=== PATIENT | female | born 1935 | race Caucasian/White ===

== ENCOUNTER 2017-01-30 09:18 | Emergency (ER) | payer MEDICARE, OTHER ==
[2017-01-30 09:29] VITALS: BP 119/78
--- NOTE | 2017-01-30 09:53 | EDM.PDOC ---
ED HPI GENERAL MEDICAL PROBLEM - General Chief Complaint: Respiratory Problem Stated Complaint: [id number] FLU OR BAD COLD Time Seen by Provider: 01/30/17 09:39 Source of Information: Reports: Patient, RN, RN Notes Reviewed History Limitations: Reports: No Limitations - History of Present Illness INITIAL COMMENTS - FREE TEXT/NARRATIVE: Pt presents to the ER with c/o a head cold and cough for 7+ days. She states her was sick for a week or longer before he was seen in the clinic and given abx. She states he is better. She states her symptoms have been going on about 7-8 days. Symptoms include non-productive cough, sore throat, chills, headache, muscle pain in the chest only with cough. She states she thought she had a fever this morning, but does not have a temperature right now. She denies N/V/D and SOB. She states she has been using Nyquil, Claritin, and trying to drink lots of water. Onset: Gradual Onset Date: 01/23/17 Location: Reports: Head, Face Quality: Reports: Ache, Dull, Throbbing Severity: Moderate Improves with: Reports: None Worsens with: Reports: None Associated Symptoms: Reports: Cough, Fever/Chills, Headaches. Denies: cough w sputum - Related Data Allergies Allergy/AdvReac Type Severity Reaction Status Date / Time oxytetracycline Allergy Unknown Rash Verified 01/30/17 09:29 [From Terramycin] oxytetracycline HCl Allergy Unknown Rash Verified 01/30/17 09:29 [From Terramycin] cefuroxime axetil AdvReac Unknown Diarrhea Verified 01/30/17 09:29 [From Ceftin] fish derived AdvReac Unknown Nausea and Verified 01/30/17 09:29 Vomiting wild rice Allergy Diarrhea Uncoded 01/30/17 09:29 Home Meds: Home Meds Acetaminophen [Acetaminophen Extra Strength] 500 mg PO Q4HR PRN 04/23/13 [ History] Levothyroxine [Synthroid] 50 mcg PO ACBRK 04/23/13 [History] Past Medical History HEENT History: Reports: Impaired Vision Other HEENT History: wers glasses Cardiovascular History: Reports: None Respiratory History: Reports: None Gastrointestinal History: Reports: None Genitourinary History: Reports: UTI, Recurrent 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 Musculoskeletal History: Reports: None Neurological History: Reports: None Psychiatric History: Reports: None Endocrine/Metabolic History: Reports: Hyperthyroidism Hematologic History: Reports: None Immunologic History: Reports: None Oncologic (Cancer) History: Reports: Leukemia Dermatologic History: Reports: None - Infectious Disease History Infectious Disease History: Reports: Chicken Pox, Measles, Mumps - Past Surgical History Head Surgeries/Procedures: Reports: None HEENT Surgical History: Reports: Tonsillectomy GI Surgical History: Reports: Appendectomy, Cholecystectomy Social & Family History - Tobacco Use Smoking Status *Q: Never Smoker Second Hand Smoke Exposure: No - Caffeine Use Caffeine Use: Reports: Coffee - Alcohol Use Days Per Week of Alcohol Use: 0 - Recreational Drug Use Recreational Drug Use: No ED ROS GENERAL - Review of Systems Review Of Systems: ROS reveals no pertinent complaints other than HPI. ED EXAM, GENERAL - Physical Exam Exam: See Below Exam Limited By: No Limitations General Appearance: Alert, WD/WN, No Apparent Distress Eye Exam: Bilateral Eye: EOMI, Normal Inspection Ears: Normal External Exam, Normal Canal, Hearing Grossly Normal, Normal TMs Nose: Normal Inspection Throat/Mouth: Normal Inspection, Normal Oropharynx, Normal Voice, No Airway Compromise Head: Atraumatic, Normocephalic Neck: Normal Inspection, Supple, Non-Tender, Full Range of Motion Respiratory/Chest: No Respiratory Distress, Lungs Clear, Normal Breath Sounds, No Accessory Muscle Use, Chest Non-Tender Cardiovascular: Normal Peripheral Pulses, Regular Rate, Rhythm, No Edema, No Gallop, No JVD, No Murmur, No Rub Peripheral Pulses: 2+: Radial (L), Radial (R) GI/Abdominal: Normal Bowel Sounds, Soft, Non-Tender, No Distention (Female) Exam: Deferred Rectal (Female) Exam: Deferred Back Exam: Normal Inspection, Full Range of Motion Extremities: Normal Inspection, Normal Range of Motion, Non-Tender, No Pedal Edema, Normal Capillary Refill Neurological: Alert, Oriented, CN II-XII Intact, Normal Cognition, Normal Gait, No Motor/Sensory Deficits Psychiatric: Normal Affect, Normal Mood Skin Exam: Warm, Dry, Intact, Normal Color, No Rash Lymphatic: No Adenopathy Course - Vital Signs Last Recorded V/S: Last Vital Signs Temp 98.2 F 01/30/17 09:23 Pulse 108 H 01/30/17 09:23 Resp 16 01/30/17 09:23 BP 119/78 01/30/17 09:23 Pulse Ox 95 01/30/17 09:23 Departure - Departure Time of Disposition: 09:51 Disposition: Home, Self-Care 01 Condition: Fair Clinical Impression: Upper respiratory infection, acute Sinusitis Qualifiers: Sinusitis location: unspecified location Chronicity: acute Recurrence: not specified as recurrent Qualified Code(s): J01.90 - Acute sinusitis, unspecified - Discharge Information Instructions: Upper Respiratory Infection, Adult, [id number] Forms: ED Department Discharge Additional Instructions: Keep drinking plenty of water RX: Flonase, Zithromax, Cheratussin Continue using an over the counter decongestant Follow up with your primary care facility if no improvement
== END 2017-01-30 10:01 | disposition home or self-care (01) ==
LOC: DL.ED 09:18
DX: J01.90 Acute sinusitis, unspecified (principal); Z88.1 Allergy status to other antibiotic agents; Z88.8 Allergy status to other drugs, medicaments and biological substances; Z91.013 Allergy to seafood; Z91.018 Allergy to other foods
CPT/HCPCS: 99283

== ENCOUNTER 2020-03-22 13:39 | Emergency (ER) | payer MEDICARE, OTHER ==
[2020-03-22 13:58] VITALS: PULSE 70
--- NOTE | 2020-03-22 14:06 | EDM.PDOC ---
ED HPI GENERAL MEDICAL PROBLEM - General Chief Complaint: Cardiovascular Problem Stated Complaint: HIGH BLOOD PRESSURE Time Seen by Provider: 03/22/20 14:06 Source of Information: Reports: Patient, RN, RN Notes Reviewed History Limitations: Reports: No Limitations - History of Present Illness INITIAL COMMENTS - FREE TEXT/NARRATIVE: Patient presents to the ED via personal vehicle with complaints of fatigue, lightheadedness, and high blood pressure. The patient reports she was feeling fatigued after lunch and decided to take her blood pressure with her husbands home monitor. She reports her first reading at 170s/90s; she waited 20 minutes and checked it again with readings of 190s/100s. She states she felt she should be evaluated as she typically has low blood pressure. She denies a history of cardiac or neurologic events; she is not currently on an antihypertensive. She denies recent illness, fever, shaking chills, vision changes, chest pain, palpitations, shortness of breath, nausea, vomiting, dysuria, hematuria, or diarrhea. She states up until this afternoon she has felt healthy and energetic. She denies tobacco, alcohol, or recreational drug use. - Related Data Allergies Allergy/AdvReac Type Severity Reaction Status Date / Time oxytetracycline Allergy Unknown Rash Verified 03/22/20 13:56 [From Terramycin] oxytetracycline HCl Allergy Unknown Rash Verified 03/22/20 13:56 [From Terramycin] cefuroxime axetil AdvReac Unknown Diarrhea Verified 03/22/20 13:56 [From Ceftin] fish derived AdvReac Unknown Nausea and Verified 03/22/20 13:56 Vomiting wild rice Allergy Diarrhea Uncoded 03/22/20 13:56 Home Meds: Home Meds Acetaminophen [Acetaminophen Extra Strength] 500 mg PO Q4HR PRN 04/23/13 [History] Levothyroxine [Synthroid] 50 mcg PO ACBRK 04/23/13 [History] Aspirin [Adult Low Dose Aspirin EC] 81 mg PO DAILY 08/13/19 [History] Famotidine 20 mg PO DAILY 08/13/19 [History] Past Medical History HEENT History: Reports: Impaired Vision Other HEENT History: wers glasses Cardiovascular History: Reports: None Respiratory History: Reports: None Gastrointestinal History: Reports: None Genitourinary History: Reports: UTI, Recurrent 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 Musculoskeletal History: Reports: None Neurological History: Reports: None Psychiatric History: Reports: None Endocrine/Metabolic History: Reports: Hyperthyroidism Hematologic History: Reports: None Immunologic History: Reports: None Oncologic (Cancer) History: Reports: Leukemia Dermatologic History: Reports: None - Infectious Disease History Infectious Disease History: Reports: Chicken Pox, Measles, Mumps - Past Surgical History Head Surgeries/Procedures: Reports: None HEENT Surgical History: Reports: Tonsillectomy GI Surgical History: Reports: Appendectomy, Cholecystectomy Female Surgical History: Reports: Hysterectomy Social & Family History - Family History Family Medical History: No Pertinent Family History - Tobacco Use Tobacco Use Status *Q: Never Tobacco User Second Hand Smoke Exposure: No - Caffeine Use Caffeine Use: Reports: Coffee - Recreational Drug Use Recreational Drug Use: No ED ROS GENERAL - Review of Systems Review Of Systems: Comprehensive ROS is negative, except as noted in HPI. ED EXAM, GENERAL - Physical Exam Exam: See Below Exam Limited By: No Limitations General Appearance: Alert, No Apparent Distress Eye Exam: Bilateral Eye: EOMI, Normal Inspection, PERRL (4mm) Throat/Mouth: Normal Inspection, Normal Voice, No Airway Compromise Head: Atraumatic, Normocephalic Neck: Normal Inspection, Supple, Non-Tender, Full Range of Motion. No: Lymphadenopathy (L), Lymphadenopathy (R) Respiratory/Chest: No Respiratory Distress, Lungs Clear, Normal Breath Sounds, No Accessory Muscle Use, Chest Non-Tender Cardiovascular: Normal Peripheral Pulses, Regular Rate, Rhythm, No Edema, No Gallop, No JVD, No Murmur, No Rub Peripheral Pulses: 2+: Radial (L), Radial (R), Dorsalis Pedis (L), Dorsalis Pedis (R) GI/Abdominal: Normal Bowel Sounds, Soft, Non-Tender, No Distention, No Mass, Pelvis Stable Back Exam: Normal Inspection, Full Range of Motion. No: CVA Tenderness (L), CVA Tenderness (R) Extremities: Normal Inspection, Normal Range of Motion, Non-Tender, No Pedal Edema, Normal Capillary Refill, Pedal Edema (Trace pitting to bilateral lower extremities) Neurological: Alert, Oriented, CN II-XII Intact, Normal Cognition, Normal Gait, No Motor/Sensory Deficits Psychiatric: Normal Affect, Normal Mood Skin Exam: Warm, Dry, Intact, Normal Color, No Rash. No: Ecchymosis, Erythema, Jaundice, Mottled, Pallor, Petechiae #1 Interpretation EKG Date: 03/22/20 Time: 14:07 Rhythm: Other (Sinus bradycardia) Rate (Beats/Min): 59 [place] Bottom: LAD-Left [place] Bottom Deviation P-Wave: Present QRS: Wide ST-T: Normal QT: Normal Comparison: NA - No Prior EKG Course - Vital Signs Last Recorded V/S: Last Vital Signs Temp 97.4 F 03/22/20 13:56 Pulse 70 03/22/20 13:56 Resp 16 03/22/20 13:56 BP 142/60 H 03/22/20 14:55 Pulse Ox 100 03/22/20 13:56 - Orders/Labs/Meds Labs: Laboratory Tests 03/22/20 03/22/20 03/22/20 Range/Units 14:14 14:14 14:14 WBC 3.7 L (5.0-10.0) 10^3/uL RBC 4.52 (4.2-5.4) 10^6/uL Hgb 14.6 (12.0-16.0) g/dL Hct 42.9 (37.0-47.0) % MCV 94.9 D (80-100) fL MCH 32.3 (27.0-34.0) pg MCHC 34.0 (33.0-35.0) g/dL Plt Count 154 D (150-450) 10^3/uL Neut % (Auto) 33.5 L (42.2-75.2) % Lymph % (Auto) 53.1 H (20.5-50.1) % Morrill % (Auto) 11.8 H (2-8) % Eos % (Auto) 1.6 (1.0-3.0) % Baso % (Auto) 0.0 (0.0-1.0) % Sodium 141 (136-145) mmol/L Potassium 4.0 (3.5-5.1) mmol/L Chloride 106 (98-107) mmol/L Carbon Dioxide 30 (21-32) mmol/L Anion Gap 9.0 (7-13) mEq/L BUN 20 H (7-18) mg/dL Creatinine 0.60 (0.55-1.02) mg/dL Est Cr Clr Drug Dosing 48.98 mL/min Estimated GFR (MDRD) > 60 BUN/Creatinine Ratio 33.3 (No establ ref range) Glucose 86 (74-99) mg/dL Calcium 9.7 (8.5-10.1) mg/dL Magnesium 1.9 (1.8-2.4) mg/dL Total Bilirubin 0.5 (0.2-1.0) mg/dL AST 27 (15-37) U/L ALT 19 (14-59) U/L Alkaline Phosphatase 76 (46-116) U/L Troponin I < 0.017 (0.000-0.056) ng/mL B-Natriuretic Peptide 183 H (0-100) pg/ml Total Protein 6.3 L (6.4-8.2) g/dL Albumin 3.2 L (3.4-5.0) g/dL Globulin 3.1 Albumin/Globulin Ratio 1.03 - Re-Assessments/Exams Free Text/Narrative Re-Assessment/Exam: 03/22/20 EKG unremarkable for acute ischemia. 03/22/20 14:42 Recheck of blood pressure was 142/60. CBC and CMP unremarkable for acute processes. Troponin negative. BNP _. Discussed EKG and lab value findings with patient. Patient counseled on blood pressure monitoring and appropriate readings for her age. Red flag signs and symptoms which would warrant reevaluation discussed with patient. Patient to follow up with her primary care provider next week, or sooner as warranted. She verbalized understanding and agreement with the plan of care. Departure - Departure Time of Disposition: 14:47 Disposition: Home, Self-Care 01 Condition: Good Clinical Impression: Elevated blood pressure reading, Elevated brain natriuretic peptide (BNP) level Fatigue Qualifiers: Fatigue type: unspecified Qualified Code(s): R53.83 - Other fatigue Instructions: Fatigue, Preventing Hypertension Forms: ED Department Discharge Additional Instructions: 1.) Follow up with your primary care provider in 3-5 days regarding today's visit, or sooner as warranted. 2.) Drink plenty of water to stay hydrated. 3.) Continue to eat a nutritionally balance diet. Sepsis Event Note (ED) - Evaluation Sepsis Screening Result: No Definite Risk - Focused Exam Vital Signs: Vital Signs Temp Pulse Resp BP Pulse Ox 03/22/20 14:55 142/60 H 03/22/20 13:56 97.4 F 70 16 177/80 H 100
[2020-03-22 14:42] LABS: CHLORIDE,CL 106 mmol/L (98-107); SODIUM,NA 141 mmol/L (136-145)
[2020-03-22 14:55] VITALS: BP 142/60
== END 2020-03-22 15:08 | disposition home or self-care (01) ==
LOC: DL.ED 13:39
DX: R53.83 Other fatigue (principal); R03.0 Elevated blood-pressure reading, without diagnosis of hypertension; R79.89 Other specified abnormal findings of blood chemistry; Z88.1 Allergy status to other antibiotic agents; Z91.013 Allergy to seafood; Z79.82 Long term (current) use of aspirin; Z79.899 Other long term (current) drug therapy; E05.90 Thyrotoxicosis, unspecified without thyrotoxic crisis or storm
CPT/HCPCS: 36415; 80053; 83735; 83880; 84484; 85025; 93005; 93010; 99284; 99284-25

== ENCOUNTER 2022-02-14 15:13 | Emergency (ER) | payer MEDICARE, OTHER ==
[2022-02-14] MEDS ORDERED: Oseltamivir 75 MG Cap PO ONE (15:14)
[2022-02-14 16:15] VITALS: BP 135/66; PULSE 76
[2022-02-14 16:18] LABS: CORONAVIRUS COVID-19 NAA NEGATIVE (NEGATIVE); RESPIRATORY SYNCYTIAL VIR NAA NEGATIVE (NEGATIVE)
[2022-02-14] MEDS ORDERED: Oseltamivir 75 MG Cap ONE (16:49)
== END 2022-02-14 16:52 | disposition home or self-care (01) ==
LOC: DL.ED 15:13
DX: J10.1 Influenza due to other identified influenza virus with other respiratory manifestations (principal); E03.9 Hypothyroidism, unspecified; Z86.16 Personal history of COVID-19; Z91.013 Allergy to seafood; Z88.8 Allergy status to other drugs, medicaments and biological substances; Z91.018 Allergy to other foods; Z79.82 Long term (current) use of aspirin; Z79.899 Other long term (current) drug therapy; Z20.822 Contact with and (suspected) exposure to COVID-19; W18.30XA Fall on same level, unspecified, initial encounter
CPT/HCPCS: 0241U; 81001; 99284; A9270

== ENCOUNTER 2023-02-15 13:32 | Emergency (ER) | payer MEDICARE, OTHER ==
[2023-02-15] MEDS ORDERED: Ketorolac 30 MG/ML SDV IVPUSH ONE (14:18)
[2023-02-15] MEDS ORDERED: Sodium Chloride 0.9% 1,000 ML IV ONE (14:18)
[2023-02-15 14:22] VITALS: BP 147/122; PULSE 100
[2023-02-15 14:23] LABS: BASOPHILS PERCENT AUTO 0.1 % (0.0-1.0); EOSINOPHILS PERCENT AUTO 0.2 % (1.0-3.0); HEMATOCRIT 43.3 % (37.0-47.0); HEMOGLOBIN 14.2 g/dL (12.0-16.0); LYMPHOCYTES PERCENT AUTO 18.1 % (20.5-50.1); MEAN CORPUSCULAR HEMOGLOBIN 31.6 pg (27.0-34.0); MEAN CORPUSCULAR HGB CONC 32.8 g/dL (33.0-35.0); MEAN CORPUSCULAR VOLUME 96.2 fL (80-100); NEUTROPHILS PERCENT AUTO 69.6 % (42.2-75.2); PLATELET COUNT,PLT 150 10^3/uL (150-450); WHITE BLOOD CELL COUNT,WBC 9.3 10^3/uL (5.0-10.0)
[2023-02-15] MEDS ORDERED: Gentamicin 0.3% Ophth Soln 5 ML Bottle EYEBOTH ONE (14:26)
[2023-02-15 14:27] LABS: A/G RATIO 0.63; ALBUMIN 2.7 g/dL (3.4-5.0); ANION GAP 13.6 mEq/L (7-13); BUN/CREATININE RATIO 24.7 (No establ ref range); CALCIUM 10.1 mg/dL (8.5-10.1); CREATININE 0.77 mg/dL (0.55-1.02); EST CRCL DRUG DOSING (CG) 33.91 mL/min; POTASSIUM,K 4.6 mmol/L (3.5-5.1)
[2023-02-15 14:50] LABS: CORONAVIRUS COVID-19 NAA NEGATIVE (NEGATIVE); INFLUENZA A NAA NEGATIVE (NEGATIVE); INFLUENZA B NAA NEGATIVE (NEGATIVE)
[2023-02-15] MEDS ORDERED: cefTRIAXone 2 GM Vial IVPUSH ONE (15:00)
[2023-02-15] MEDS ORDERED: cefTRIAXone 1 GM Vial IM ONE (15:22)
[2023-02-15] MEDS ORDERED: Lidocaine 1% 5 ML VIAL INJECT ONE (15:28)
== END 2023-02-15 15:47 | disposition home or self-care (01) ==
LOC: DL.ED 13:32
DX: J18.9 Pneumonia, unspecified organism (principal); H10.89 Other conjunctivitis; E03.9 Hypothyroidism, unspecified; Z20.822 Contact with and (suspected) exposure to COVID-19; Z86.16 Personal history of COVID-19; Z79.82 Long term (current) use of aspirin; Z79.899 Other long term (current) drug therapy; Z88.1 Allergy status to other antibiotic agents; Z91.048 Other nonmedicinal substance allergy status; Z88.8 Allergy status to other drugs, medicaments and biological substances
CPT/HCPCS: 0240U; 36415; 80053; 85025; 96372; 96374; 99284; A9270; J0696; J1885; J7030; J3490

== ENCOUNTER 2023-05-21 11:37 | Emergency (ER) | payer MEDICARE, OTHER ==
[2023-05-21 11:55] VITALS: BP 157/72; PULSE 114
[2023-05-21 12:31] LABS: BASOPHILS PERCENT AUTO 0.1 % (0.0-1.0); EOSINOPHILS PERCENT AUTO 0.3 % (1.0-3.0); HEMATOCRIT 44.3 % (37.0-47.0); HEMOGLOBIN 14.8 g/dL (12.0-16.0); LYMPHOCYTES PERCENT AUTO 28.4 % (20.5-50.1); MEAN CORPUSCULAR HEMOGLOBIN 31.6 pg (27.0-34.0); MEAN CORPUSCULAR HGB CONC 33.4 g/dL (33.0-35.0); MEAN CORPUSCULAR VOLUME 94.7 fL (80-100); MONOCYTES PERCENT AUTO 15.3 % (2-8); NEUTROPHILS PERCENT AUTO 55.9 % (42.2-75.2); PLATELET COUNT,PLT 142 10^3/uL (150-450); RED BLOOD CELL COUNT 4.68 10^6/uL (4.2-5.4); WHITE BLOOD CELL COUNT,WBC 6.9 10^3/uL (5.0-10.0)
[2023-05-21 12:31] LABS: APPEARANCE,URINE CLEAR (CLEAR); BILIRUBIN,URINE NEGATIVE (NEGATIVE); COLOR,URINE YELLOW (YELLOW); GLUCOSE,URINE NEGATIVE (NEGATIVE); KETONES,URINE NEGATIVE (NEGATIVE); LEUKOCYTE ESTERASE,URINE NEGATIVE (NEGATIVE); NITRITE,URINE NEGATIVE (NEGATIVE); OCCULT BLOOD,URINE NEGATIVE (NEGATIVE); PROTEIN,URINE 30 (NEGATIVE); UROBILINOGEN,URINE 0.2 mg/dL (0.2-1.0)
[2023-05-21 12:53] LABS: ALBUMIN 3.1 g/dL (3.4-5.0); ANION GAP 12.3 mEq/L (7-13); BILIRUBIN TOTAL 0.9 mg/dL (0.2-1.0); BUN/CREATININE RATIO 26.3 (No establ ref range); CREATININE 0.76 mg/dL (0.55-1.02); EST CRCL DRUG DOSING (CG) 34.8 mL/min; MAGNESIUM 1.7 mg/dL (1.8-2.4); PHOSPHORUS 2.3 mg/dL (2.6-4.7); POTASSIUM,K 4.3 mmol/L (3.5-5.1); PROTEIN TOTAL,TP 7.4 g/dL (6.4-8.2)
[2023-05-21 13:00] LABS: A/G RATIO 0.72
[2023-05-21 13:09] LABS: BACTERIA,URINE FEW /HPF (0-FEW/HPF); CALCIUM OXALATE CRYSTALS,URINE MODERATE /HPF (NOT SEEN); EPITHELIAL CELLS,URINE FEW /HPF (NOT SEEN); MUCUS,URINE MODERATE /LPF (NOT SEEN); WBC,URINE 0-5 /HPF (0-5/HPF)
[2023-05-21] MEDS: Take Home: Azithromycin 250 MG, 2 Tab Pack PO ONE (13:53)
[2023-05-21] MEDS: Azithromycin 250 MG Tab PO ONE (13:53)
== END 2023-05-21 13:55 | disposition home or self-care (01) ==
LOC: DL.ED 11:37
DX: H73.012 Bullous myringitis, left ear (principal); E03.9 Hypothyroidism, unspecified; Z88.1 Allergy status to other antibiotic agents; Z88.8 Allergy status to other drugs, medicaments and biological substances; Z91.013 Allergy to seafood; Z91.018 Allergy to other foods; Z79.82 Long term (current) use of aspirin; Z79.899 Other long term (current) drug therapy; Z86.16 Personal history of COVID-19; Z90.49 Acquired absence of other specified parts of digestive tract; Z90.710 Acquired absence of both cervix and uterus
CPT/HCPCS: 36415; 80053; 81001; 83735; 84100; 84484; 85025; 93005; 93010; 99284; A9270

== ENCOUNTER 2024-07-08 08:31 | Emergency (ER) | payer MEDICARE, OTHER ==
[2024-07-08] MEDS ORDERED: Sodium Chloride 0.9% 10 ML Syringe FLUSH PRN (09:28)
[2024-07-08 09:59] LABS: BASOPHILS PERCENT AUTO 0.1 % (0.0-1.0); EOSINOPHILS PERCENT AUTO 0.3 % (1.0-3.0); HEMATOCRIT 45.8 % (37.0-47.0); HEMOGLOBIN 14.7 g/dL (12.0-16.0); LYMPHOCYTES PERCENT AUTO 18.4 % (20.5-50.1); MEAN CORPUSCULAR HEMOGLOBIN 30.4 pg (27.0-34.0); MEAN CORPUSCULAR HGB CONC 32.1 g/dL (33.0-35.0); MEAN CORPUSCULAR VOLUME 94.6 fL (80-100); MONOCYTES PERCENT AUTO 13.2 % (2-8); PLATELET COUNT,PLT 157 10^3/uL (150-450); RED BLOOD CELL COUNT 4.84 10^6/uL (4.2-5.4); WHITE BLOOD CELL COUNT,WBC 6.8 10^3/uL (5.0-10.0)
[2024-07-08 10:12] LABS: ALBUMIN 2.7 g/dL (3.4-5.0); ANION GAP 14.5 mEq/L (7-13); BILIRUBIN TOTAL 0.8 mg/dL (0.2-1.0); BUN/CREATININE RATIO 52.3 (No establ ref range); C-REACTIVE PROTEIN 3.1 ng/dL (<=0.50); CALCIUM 10.4 mg/dL (8.5-10.1); CREATININE 0.88 mg/dL (0.55-1.02); EST CRCL DRUG DOSING (CG) 27.48 mL/min; MAGNESIUM 1.6 mg/dL (1.8-2.4); POTASSIUM,K 4.5 mmol/L (3.5-5.1); PROTEIN TOTAL,TP 7.3 g/dL (6.4-8.2)
[2024-07-08 10:22] LABS: A/G RATIO 0.59
[2024-07-08] MEDS: Sodium Chloride 0.9% 500 ML IV ONE (10:40)
[2024-07-08] MEDS: Magnesium Sulfate 2 GM/50 mL 2 GM in Premix Bag 1 BAG IV ONE (10:40)
[2024-07-08] MEDS ORDERED: Benzocaine/Cetylpyridinium/Menthol Lozenge MUCMEM PRN (10:44)
[2024-07-08 12:54] VITALS: BP 110/65; PULSE 85
== END 2024-07-08 12:41 | disposition home or self-care (01) ==
LOC: DL.ED 08:31
DX: K52.9 Noninfective gastroenteritis and colitis, unspecified (principal); E86.0 Dehydration; E83.42 Hypomagnesemia; E03.9 Hypothyroidism, unspecified; Z88.8 Allergy status to other drugs, medicaments and biological substances; Z91.013 Allergy to seafood; Z91.018 Allergy to other foods; Z79.899 Other long term (current) drug therapy; Z79.890 Hormone replacement therapy; Z86.16 Personal history of COVID-19; Z90.710 Acquired absence of both cervix and uterus; Z90.49 Acquired absence of other specified parts of digestive tract
CPT/HCPCS: 36415; 80053; 83735; 85025; 86140; 87081; 87430; 96365; 99284; J3475; J7040

== ENCOUNTER 2024-07-09 12:59 | Inpatient (IN) | payer MEDICARE, OTHER ==
[2024-07-09] MEDS ORDERED: Sodium Chloride 0.9% 10 ML Syringe FLUSH PRN (13:03)
[2024-07-09 13:28] LABS: EOSINOPHILS PERCENT AUTO 0.9 % (1.0-3.0); HEMATOCRIT 43.5 % (37.0-47.0); HEMOGLOBIN 14.5 g/dL (12.0-16.0); LYMPHOCYTES PERCENT AUTO 17.6 % (20.5-50.1); MEAN CORPUSCULAR HEMOGLOBIN 31.5 pg (27.0-34.0); MEAN CORPUSCULAR HGB CONC 33.3 g/dL (33.0-35.0); MEAN CORPUSCULAR VOLUME 94.6 fL (80-100); MONOCYTES PERCENT AUTO 13.8 % (2-8); NEUTROPHILS PERCENT AUTO 67.7 % (42.2-75.2); PLATELET COUNT,PLT 139 10^3/uL (150-450); WHITE BLOOD CELL COUNT,WBC 5.4 10^3/uL (5.0-10.0)
[2024-07-09 13:49] LABS: ALBUMIN 2.6 g/dL (3.4-5.0); ANION GAP 18.2 mEq/L (7-13); BILIRUBIN TOTAL 0.7 mg/dL (0.2-1.0); BUN/CREATININE RATIO 46.6 (No establ ref range); CREATININE 1.18 mg/dL (0.55-1.02); POTASSIUM,K 4.2 mmol/L (3.5-5.1)
[2024-07-09 13:51] LABS: A/G RATIO 0.59
[2024-07-09] MEDS: Sodium Chloride 0.9% 500 ML IV ONE (14:10)
[2024-07-09 15:36] LABS: T4 FREE 1.95 ng/dL (0.76-1.46); TSH ULTRASENSITIVE 3.83 uIU/mL (0.36-3.74)
[2024-07-09] MEDS: Pantoprazole 40 MG Vial IVPUSH SCH (15:44)
[2024-07-09] MEDS: Sodium Chloride 0.9% 1,000 ML IV SCH (16:41)
[2024-07-10] MEDS: Ondansetron 4 MG/2 ML SDV IVPUSH PRN (03:31)
[2024-07-10 06:11] LABS: EOSINOPHILS PERCENT AUTO 0.9 % (1.0-3.0); HEMATOCRIT 39.8 % (37.0-47.0); HEMOGLOBIN 14.1 g/dL (12.0-16.0); LYMPHOCYTES PERCENT AUTO 17.7 % (20.5-50.1); MEAN CORPUSCULAR HEMOGLOBIN 33.5 pg (27.0-34.0); MEAN CORPUSCULAR HGB CONC 35.4 g/dL (33.0-35.0); MEAN CORPUSCULAR VOLUME 94.5 fL (80-100); NEUTROPHILS PERCENT AUTO 67.4 % (42.2-75.2); PLATELET COUNT,PLT 125 10^3/uL (150-450); RED BLOOD CELL COUNT 4.21 10^6/uL (4.2-5.4); WHITE BLOOD CELL COUNT,WBC 4.6 10^3/uL (5.0-10.0)
[2024-07-10 06:42] LABS: ALBUMIN 2.1 g/dL (3.4-5.0); ANION GAP 15.7 mEq/L (7-13); BILIRUBIN TOTAL 0.5 mg/dL (0.2-1.0); BUN/CREATININE RATIO 60.7 (No establ ref range); CALCIUM 10.4 mg/dL (8.5-10.1); CREATININE 0.84 mg/dL (0.55-1.02); EST CRCL DRUG DOSING (CG) 27.75 mL/min; MAGNESIUM 1.7 mg/dL (1.8-2.4); POTASSIUM,K 3.7 mmol/L (3.5-5.1)
[2024-07-10 06:44] LABS: A/G RATIO 0.54
[2024-07-10] MEDS: Enoxaparin 30 MG/0.3 ML Syringe SUBCUT SCH (08:54)
[2024-07-10] MEDS: Magnesium Oxide 400 MG Tab PO SCH (08:54)
[2024-07-10] MEDS: Benzocaine/Cetylpyridinium/Menthol Lozenge MUCMEM PRN (10:22)
[2024-07-10 17:33] LABS: CORONAVIRUS COVID-19 NAA NEGATIVE (NEGATIVE); INFLUENZA A NAA NEGATIVE (NEGATIVE); INFLUENZA B NAA NEGATIVE (NEGATIVE)
[2024-07-10] MEDS ORDERED: Menthol/Zinc Oxide Ointment 113 GM Tube TOP PRN (18:04)
[2024-07-11 06:17] LABS: BASOPHILS PERCENT AUTO 0.2 % (0.0-1.0); HEMATOCRIT 43.2 % (37.0-47.0); HEMOGLOBIN 14.9 g/dL (12.0-16.0); LYMPHOCYTES PERCENT AUTO 14.6 % (20.5-50.1); MEAN CORPUSCULAR HEMOGLOBIN 32.5 pg (27.0-34.0); MEAN CORPUSCULAR HGB CONC 34.5 g/dL (33.0-35.0); MEAN CORPUSCULAR VOLUME 94.3 fL (80-100); MONOCYTES PERCENT AUTO 12.6 % (2-8); NEUTROPHILS PERCENT AUTO 71.6 % (42.2-75.2); PLATELET COUNT,PLT 140 10^3/uL (150-450); RED BLOOD CELL COUNT 4.58 10^6/uL (4.2-5.4)
[2024-07-11 06:54] LABS: ALBUMIN 2.1 g/dL (3.4-5.0); ANION GAP 13.6 mEq/L (7-13); BILIRUBIN TOTAL 0.4 mg/dL (0.2-1.0); BUN/CREATININE RATIO 68.8 (No establ ref range); CALCIUM 11.3 mg/dL (8.5-10.1); CREATININE 0.77 mg/dL (0.55-1.02); EST CRCL DRUG DOSING (CG) 29.87 mL/min; MAGNESIUM 1.7 mg/dL (1.8-2.4); POTASSIUM,K 3.6 mmol/L (3.5-5.1); PROTEIN TOTAL,TP 5.9 g/dL (6.4-8.2)
[2024-07-11 06:57] LABS: A/G RATIO 0.55
[2024-07-11] MEDS: BUTT PASTE TOP SCH (13:05)
[2024-07-11] MEDS: Loperamide 2 MG Cap PO ONE (18:15)
[2024-07-11] MEDS: Magnesium Oxide 400 MG Tab PO SCH (18:15)
[2024-07-11] MEDS: Acetaminophen 325 MG Tab PO PRN (20:45)
[2024-07-11] MEDS ORDERED: Loperamide 2 MG Cap PO PRN (22:00)
[2024-07-12 07:08] LABS: BASOPHILS PERCENT AUTO 0.1 % (0.0-1.0); EOSINOPHILS PERCENT AUTO 1.8 % (1.0-3.0); HEMATOCRIT 43.9 % (37.0-47.0); HEMOGLOBIN 15.3 g/dL (12.0-16.0); LYMPHOCYTES PERCENT AUTO 12.2 % (20.5-50.1); MEAN CORPUSCULAR HEMOGLOBIN 32.5 pg (27.0-34.0); MEAN CORPUSCULAR HGB CONC 34.9 g/dL (33.0-35.0); MEAN CORPUSCULAR VOLUME 93.2 fL (80-100); MONOCYTES PERCENT AUTO 9.6 % (2-8); NEUTROPHILS PERCENT AUTO 76.3 % (42.2-75.2); PLATELET COUNT,PLT 125 10^3/uL (150-450); RED BLOOD CELL COUNT 4.71 10^6/uL (4.2-5.4); WHITE BLOOD CELL COUNT,WBC 7.1 10^3/uL (5.0-10.0)
[2024-07-12 07:16] LABS: ALBUMIN 1.8 g/dL (3.4-5.0); ANION GAP 15.2 mEq/L (7-13); BILIRUBIN TOTAL 0.4 mg/dL (0.2-1.0); BUN/CREATININE RATIO 76.4 (No establ ref range); CALCIUM 11.1 mg/dL (8.5-10.1); CREATININE 0.72 mg/dL (0.55-1.02); EST CRCL DRUG DOSING (CG) 32.37 mL/min; MAGNESIUM 1.6 mg/dL (1.8-2.4); POTASSIUM,K 3.2 mmol/L (3.5-5.1); PROTEIN TOTAL,TP 5.8 g/dL (6.4-8.2)
[2024-07-12 07:22] LABS: A/G RATIO 0.45
[2024-07-12] MEDS ORDERED: Loperamide 2 MG Cap PO PRN (07:54)
[2024-07-12] MEDS: Magnesium Oxide 400 MG Tab PO SCH (08:14)
[2024-07-12] MEDS: Potassium Chloride 10 MEQ Tab.ER PO SCH (08:15)
[2024-07-12] MEDS: Bisacodyl 10 MG Supp RECTAL ONE (10:55)
[2024-07-12] MEDS: Docusate Sodium 100 MG Cap PO SCH (11:04)
[2024-07-12] MEDS: Polyethylene Glycol 3350 Powder 17 GM Packet PO SCH (11:05)
[2024-07-12] MEDS: Lactulose Soln 10 GM/15 ML 30 ML UD Cup PO ONE (16:03)
[2024-07-12] MEDS: Iopamidol 612 MG/ML 100 ML Bottle IVPUSH ONE (16:19)
[2024-07-12] MEDS ORDERED: Sennosides/Docusate Sodium 50-8.6 MG Tab PO SCH (21:00)
[2024-07-12] MEDS: Melatonin 3 MG Tab PO PRN (21:00)
[2024-07-12] MEDS: Potassium Chloride 20 MEQ in Premix Bag 1 BAG IV ONE (21:01)
[2024-07-12] MEDS: Azithromycin 250 MG Tab PO SCH (21:22)
[2024-07-13 06:45] LABS: BASOPHILS PERCENT AUTO 0.2 % (0.0-1.0); EOSINOPHILS PERCENT AUTO 0.8 % (1.0-3.0); HEMATOCRIT 43.1 % (37.0-47.0); HEMOGLOBIN 14.8 g/dL (12.0-16.0); LYMPHOCYTES PERCENT AUTO 16.1 % (20.5-50.1); MEAN CORPUSCULAR HGB CONC 34.3 g/dL (33.0-35.0); MEAN CORPUSCULAR VOLUME 93.1 fL (80-100); NEUTROPHILS PERCENT AUTO 73.9 % (42.2-75.2); PLATELET COUNT,PLT 130 10^3/uL (150-450); RED BLOOD CELL COUNT 4.63 10^6/uL (4.2-5.4); WHITE BLOOD CELL COUNT,WBC 11.1 10^3/uL (5.0-10.0)
[2024-07-13 07:07] LABS: ANION GAP 13.6 mEq/L (7-13); BILIRUBIN TOTAL 0.4 mg/dL (0.2-1.0); BUN/CREATININE RATIO 67.2 (No establ ref range); CALCIUM 11.2 mg/dL (8.5-10.1); CREATININE 0.61 mg/dL (0.55-1.02); EST CRCL DRUG DOSING (CG) 39.21 mL/min; MAGNESIUM 1.7 mg/dL (1.8-2.4); POTASSIUM,K 3.6 mmol/L (3.5-5.1); PROTEIN TOTAL,TP 5.8 g/dL (6.4-8.2)
[2024-07-13 07:13] LABS: A/G RATIO 0.53
[2024-07-13] MEDS: Enoxaparin 40 MG/0.4 ML Syringe SUBCUT SCH (09:02)
[2024-07-13] MEDS: Enoxaparin 30 MG/0.3 ML Syringe SUBCUT ONE (09:32)
[2024-07-13 11:07] LABS: APPEARANCE,URINE SLIGHTLY CLOUDY (CLEAR); BILIRUBIN,URINE NEGATIVE (NEGATIVE); COLOR,URINE YELLOW (YELLOW); GLUCOSE,URINE NEGATIVE (NEGATIVE); KETONES,URINE NEGATIVE (NEGATIVE); LEUKOCYTE ESTERASE,URINE NEGATIVE (NEGATIVE); NITRITE,URINE NEGATIVE (NEGATIVE); OCCULT BLOOD,URINE NEGATIVE (NEGATIVE); PH,URINE 5.5 (5.0-9.0); PROTEIN,URINE 100 (NEGATIVE); UROBILINOGEN,URINE 0.2 mg/dL (0.2-1.0)
[2024-07-13 11:16] LABS: AMORPHOUS SEDIMENT,URINE FEW /HPF (NOT SEEN); BACTERIA,URINE FEW /HPF (0-FEW/HPF); EPITHELIAL CELLS,URINE RARE /HPF (NOT SEEN); MUCUS,URINE RARE /LPF (NOT SEEN); RBC,URINE 0-5 /HPF (0-5); WBC,URINE 0-5 /HPF (0-5/HPF)
[2024-07-13] MEDS: Ampicillin/Sulbactam Na 1.5 GM in Sodium Chloride 0.9% 100 ML IV SCH (11:44)
[2024-07-13] MEDS: Magnesium Sulfate 2 GM/50 mL 2 GM in Premix Bag 1 BAG IV ONE (12:20)
[2024-07-13] MEDS: Menthol/Zinc Oxide Ointment 113 GM Tube TOP PRN (13:02)
[2024-07-14 06:23] LABS: HEMATOCRIT 36.9 % (37.0-47.0); HEMOGLOBIN 11.9 g/dL (12.0-16.0); MEAN CORPUSCULAR HEMOGLOBIN 29.8 pg (27.0-34.0); MEAN CORPUSCULAR HGB CONC 32.2 g/dL (33.0-35.0); MEAN CORPUSCULAR VOLUME 92.5 fL (80-100); PLATELET COUNT,PLT 127 10^3/uL (150-450); RED BLOOD CELL COUNT 3.99 10^6/uL (4.2-5.4); WHITE BLOOD CELL COUNT,WBC 5.6 10^3/uL (5.0-10.0)
[2024-07-14 06:29] LABS: BASOPHILS PERCENT AUTO 0.2 % (0.0-1.0); EOSINOPHILS PERCENT AUTO 2.2 % (1.0-3.0); LYMPHOCYTES PERCENT AUTO 20.4 % (20.5-50.1); MONOCYTES PERCENT AUTO 10.4 % (2-8); NEUTROPHILS PERCENT AUTO 66.8 % (42.2-75.2)
[2024-07-14 06:43] LABS: ALBUMIN 1.7 g/dL (3.4-5.0); ANION GAP 12.3 mEq/L (7-13); BILIRUBIN TOTAL 0.4 mg/dL (0.2-1.0); BUN/CREATININE RATIO 61.8 (No establ ref range); CALCIUM 10.1 mg/dL (8.5-10.1); CREATININE 0.55 mg/dL (0.55-1.02); EST CRCL DRUG DOSING (CG) 47.69 mL/min; POTASSIUM,K 3.3 mmol/L (3.5-5.1); PROTEIN TOTAL,TP 5.1 g/dL (6.4-8.2)
[2024-07-14 06:44] LABS: A/G RATIO 0.5
[2024-07-14 07:09] LABS: EOSINOPHILS PERCENT MAN 3 % (1-3); LYMPHOCYTES PERCENT MAN 13 % (20-50); MONOCYTES PERCENT MAN 10 % (2-8); SEG NEUTROPHILS PERCENT MAN 74 % (42-75)
[2024-07-14] MEDS: Sodium Chloride 0.45% with KCl 1,000 ML IV SCH (08:14)
[2024-07-14] MEDS: Enoxaparin 40 MG/0.4 ML Syringe SUBCUT SCH (09:16)
[2024-07-14 16:44] LABS: ANION GAP 13.5 mEq/L (7-13); CALCIUM 9.8 mg/dL (8.5-10.1); CREATININE 0.56 mg/dL (0.55-1.02); EST CRCL DRUG DOSING (CG) 43.16 mL/min; POTASSIUM,K 3.5 mmol/L (3.5-5.1)
[2024-07-14] MEDS: Dextrose 5% in Water 1,000 ML IV SCH (20:56)
[2024-07-15 06:33] LABS: EOSINOPHILS PERCENT AUTO 4.2 % (1.0-3.0); HEMATOCRIT 33.4 % (37.0-47.0); HEMOGLOBIN 10.7 g/dL (12.0-16.0); LYMPHOCYTES PERCENT AUTO 35.7 % (20.5-50.1); MEAN CORPUSCULAR HEMOGLOBIN 29.7 pg (27.0-34.0); MEAN CORPUSCULAR VOLUME 92.8 fL (80-100); MONOCYTES PERCENT AUTO 8.7 % (2-8); NEUTROPHILS PERCENT AUTO 51.4 % (42.2-75.2); PLATELET COUNT,PLT 128 10^3/uL (150-450)
[2024-07-15 06:54] LABS: ALBUMIN 1.6 g/dL (3.4-5.0); ANION GAP 11.3 mEq/L (7-13); BILIRUBIN TOTAL 0.3 mg/dL (0.2-1.0); BUN/CREATININE RATIO 71.8 (No establ ref range); CALCIUM 9.6 mg/dL (8.5-10.1); CREATININE 0.39 mg/dL (0.55-1.02); EST CRCL DRUG DOSING (CG) 65.19 mL/min; MAGNESIUM 1.7 mg/dL (1.8-2.4); POTASSIUM,K 3.3 mmol/L (3.5-5.1); PROTEIN TOTAL,TP 4.6 g/dL (6.4-8.2)
[2024-07-15 06:58] LABS: A/G RATIO 0.53
[2024-07-15] MEDS: Magnesium Sulfate 2 GM/50 mL 2 GM in Premix Bag 1 BAG IV ONE (07:40)
[2024-07-15] MEDS: Potassium Chloride 10 MEQ Tab.ER PO SCH (08:28)
[2024-07-15 10:43] LABS: CALPROTECTIN,FECAL 1540 ug/g (<=49)
[2024-07-15 16:03] LABS: ANION GAP 8.9 mEq/L (7-13); CALCIUM 9.2 mg/dL (8.5-10.1); CREATININE 0.48 mg/dL (0.55-1.02); EST CRCL DRUG DOSING (CG) 52.96 mL/min; POTASSIUM,K 4.9 mmol/L (3.5-5.1)
[2024-07-15 19:17] LABS: POTASSIUM,K 3.9 mmol/L (3.5-5.1)
[2024-07-16 06:22] LABS: BASOPHILS PERCENT AUTO 0.2 % (0.0-1.0); EOSINOPHILS PERCENT AUTO 4.2 % (1.0-3.0); HEMATOCRIT 34.5 % (37.0-47.0); HEMOGLOBIN 11.5 g/dL (12.0-16.0); LYMPHOCYTES PERCENT AUTO 42.4 % (20.5-50.1); MEAN CORPUSCULAR HGB CONC 33.3 g/dL (33.0-35.0); MONOCYTES PERCENT AUTO 9.7 % (2-8); NEUTROPHILS PERCENT AUTO 43.5 % (42.2-75.2); PLATELET COUNT,PLT 137 10^3/uL (150-450); RED BLOOD CELL COUNT 3.71 10^6/uL (4.2-5.4); WHITE BLOOD CELL COUNT,WBC 5.8 10^3/uL (5.0-10.0)
[2024-07-16 06:48] LABS: ALBUMIN 1.6 g/dL (3.4-5.0); ANION GAP 5.6 mEq/L (7-13); BILIRUBIN TOTAL 0.3 mg/dL (0.2-1.0); BUN/CREATININE RATIO 44.7 (No establ ref range); CALCIUM 9.2 mg/dL (8.5-10.1); CREATININE 0.38 mg/dL (0.55-1.02); EST CRCL DRUG DOSING (CG) 66.98 mL/min; MAGNESIUM 1.8 mg/dL (1.8-2.4); POTASSIUM,K 3.6 mmol/L (3.5-5.1); PROTEIN TOTAL,TP 4.8 g/dL (6.4-8.2)
[2024-07-16 06:50] LABS: A/G RATIO 0.5
[2024-07-16] MEDS ORDERED: Albuterol 6.7 GM Inhaler INH PRN (09:00)
[2024-07-16] MEDS: Albuterol/Ipratropium 3.0-0.5 MG/3 ML Neb Soln NEB SCH (09:50)
[2024-07-16 11:07] VITALS: BP 131/51; PULSE 71
== END 2024-07-16 11:32 | disposition swing bed (61) | DRG 683 ==
LOC: DL.ED 12:59 → DL.MS 14:02 → OBSVTOIN 07-10 11:36
PROVIDERS: ADMIT Student in an Organized Health Care Education/Training Program; ATTEND Student in an Organized Health Care Education/Training Program
DX: N17.9 Acute kidney failure, unspecified (principal); E87.0 Hyperosmolality and hypernatremia; I10 Essential (primary) hypertension; A08.4 Viral intestinal infection, unspecified; E86.0 Dehydration; Z91.048 Other nonmedicinal substance allergy status; Z66 Do not resuscitate; J02.9 Acute pharyngitis, unspecified; E88.09 Other disorders of plasma-protein metabolism, not elsewhere classified; D69.6 Thrombocytopenia, unspecified; I12.9 Hypertensive chronic kidney disease with stage 1 through stage 4 chronic kidney disease, or unspecified chronic kidney disease; N18.9 Chronic kidney disease, unspecified; H54.7 Unspecified visual loss; E83.42 Hypomagnesemia; E87.6 Hypokalemia; D64.9 Anemia, unspecified; E03.9 Hypothyroidism, unspecified; Z86.16 Personal history of COVID-19; Z90.89 Acquired absence of other organs; Z90.49 Acquired absence of other specified parts of digestive tract; Z90.710 Acquired absence of both cervix and uterus; Z88.1 Allergy status to other antibiotic agents; Z91.013 Allergy to seafood; Z91.018 Allergy to other foods; Z79.890 Hormone replacement therapy; Z79.899 Other long term (current) drug therapy; Z85.6 Personal history of leukemia; Z86.69 Personal history of other diseases of the nervous system and sense organs
CPT/HCPCS: 0240U; 36415; 51701; 71045; 74018; 74177; 80048; 80053; 81001; 82272; 83735; 83993; 84132; 84295; 84439; 84443; 84484; 85025; 87040; 87045; 87046; 87328; 87329; 87493; 87507; 87899; 96360; 97161; 97165; 97530; 99232; 99233; 99238; 99285; 87505; 96361; 96372; 96374; 96375; 96376; 99223; 99284; A9270-GY; G0378; J0295; J1650; J2405; J2470; J3475; J3480; J7030; J7040; J7070; Q9967

== ENCOUNTER 2024-07-16 10:51 | Inpatient (IN) | payer MEDICARE, OTHER ==
[2024-07-16] MEDS ORDERED: Benzocaine/Cetylpyridinium/Menthol Lozenge MUCMEM PRN (11:11)
[2024-07-16] MEDS ORDERED: Albuterol 6.7 GM Inhaler INH PRN (11:11)
[2024-07-16] MEDS ORDERED: Acetaminophen 325 MG Tab PO PRN (11:11)
[2024-07-16] MEDS ORDERED: Ondansetron 4 MG Tab.DIS PO PRN (11:16)
[2024-07-16] MEDS: Calcium Carbonate 500 MG Tab.Chew PO PRN (14:37)
[2024-07-16] MEDS ORDERED: Acetaminophen 500 MG Tab PO PRN (18:45)
[2024-07-16] MEDS: Melatonin 3 MG Tab PO PRN (21:48)
[2024-07-17] MEDS: BUTT PASTE TOP SCH (00:12)
[2024-07-17] MEDS: Pantoprazole 40 MG Tab.CR PO SCH (05:28)
[2024-07-17] MEDS: Enoxaparin 40 MG/0.4 ML Syringe SUBCUT SCH (08:28)
[2024-07-17 08:30] LABS: CALCIUM 9.4 mg/dL (8.5-10.1); CREATININE 0.45 mg/dL (0.55-1.02); EST CRCL DRUG DOSING (CG) 57.24 mL/min; MAGNESIUM 1.6 mg/dL (1.8-2.4)
[2024-07-17] MEDS: Magnesium Oxide 400 MG Tab PO SCH (12:04)
[2024-07-18] MEDS: Melatonin 3 MG Tab PO PRN (00:43)
[2024-07-18 08:34] LABS: MAGNESIUM 1.7 mg/dL (1.8-2.4)
[2024-07-19 08:36] LABS: ANION GAP 10.9 mEq/L (7-13); CALCIUM 9.8 mg/dL (8.5-10.1); CREATININE 0.54 mg/dL (0.55-1.02); EST CRCL DRUG DOSING (CG) 50.07 mL/min; MAGNESIUM 1.9 mg/dL (1.8-2.4); POTASSIUM,K 4.9 mmol/L (3.5-5.1)
[2024-07-19] MEDS: Furosemide 40 MG Tab PO ONE (10:15)
[2024-07-19] MEDS: Furosemide 80 MG Tab PO ONE (15:06)
[2024-07-19] MEDS: BUTT PASTE TOP SCH (20:12)
[2024-07-20 08:25] LABS: MAGNESIUM 1.9 mg/dL (1.8-2.4); POTASSIUM,K 4.4 mmol/L (3.5-5.1)
[2024-07-20] MEDS: Melatonin 3 MG Tab PO PRN (20:19)
[2024-07-21 08:43] LABS: POTASSIUM,K 4.3 mmol/L (3.5-5.1)
[2024-07-21] MEDS: Melatonin 3 MG Tab PO SCH (20:32)
[2024-07-22] MEDS: Levothyroxine 25 MCG Tab PO SCH (06:01)
[2024-07-23 12:08] LABS: MAGNESIUM 2.2 mg/dL (1.8-2.4); T4 FREE 1.17 ng/dL (0.76-1.46); TSH ULTRASENSITIVE 10.47 uIU/mL (0.36-3.74)
[2024-07-24 08:08] VITALS: BP 111/68; PULSE 77
== END 2024-07-24 12:29 | disposition home health service (06) | DRG 948 ==
LOC: DL.MS 11:15
PROVIDERS: ADMIT Student in an Organized Health Care Education/Training Program; ATTEND Student in an Organized Health Care Education/Training Program
DX: R53.1 Weakness (principal); D84.9 Immunodeficiency, unspecified; A08.39 Other viral enteritis; E03.9 Hypothyroidism, unspecified; Z66 Do not resuscitate; I10 Essential (primary) hypertension; D64.9 Anemia, unspecified; E83.42 Hypomagnesemia; D69.6 Thrombocytopenia, unspecified; E86.0 Dehydration; E88.09 Other disorders of plasma-protein metabolism, not elsewhere classified; H90.5 Unspecified sensorineural hearing loss; H54.7 Unspecified visual loss; Z88.8 Allergy status to other drugs, medicaments and biological substances; Z91.013 Allergy to seafood; Z79.51 Long term (current) use of inhaled steroids; Z79.899 Other long term (current) drug therapy; Z98.890 Other specified postprocedural states; Z90.89 Acquired absence of other organs; Z90.49 Acquired absence of other specified parts of digestive tract; Z90.710 Acquired absence of both cervix and uterus
CPT/HCPCS: 36415; 80048; 83735; 84132; 84295; 84439; 84443; 97110-GO; 97110-GP; 97161-GP; 97165-GO; 97530-GO; 97530-GP; 99306; 99316; A9270-GY; J1650

== ENCOUNTER 2024-08-23 10:16 | Emergency (ER) | payer MEDICARE, OTHER ==
[2024-08-23 11:37] LABS: BASOPHILS PERCENT AUTO 0.3 % (0.0-1.0); EOSINOPHILS PERCENT AUTO 2.2 % (1.0-3.0); LYMPHOCYTES PERCENT AUTO 42.9 % (20.5-50.1); MONOCYTES PERCENT AUTO 17.3 % (2-8); NEUTROPHILS PERCENT AUTO 37.3 % (42.2-75.2); PLATELET COUNT,PLT 163 10^3/uL (150-450); RED BLOOD CELL COUNT 4.42 10^6/uL (4.2-5.4); WHITE BLOOD CELL COUNT,WBC 3.6 10^3/uL (5.0-10.0)
[2024-08-23 12:03] LABS: A/G RATIO 0.7; ALANINE AMINOTRANSFERASE,ALT 16.0 U/L (14-59); ASPARTATE AMNIOTRANSFERASE,AST 25.0 U/L (15-37); BILIRUBIN TOTAL 0.4 mg/dL (0.2-1.0); BLOOD UREA NITROGEN,BUN 39.0 mg/dL (7-18); CARBON DIOXIDE,CO2 33.0 mmol/L (21-32); CHLORIDE,CL 107.0 mmol/L (98-107); CREATININE 0.7 mg/dL (0.55-1.02); EST CRCL DRUG DOSING (CG) 34.61 mL/min; ESTIMATED GFR 83.0 mL/min (>=60); GLUCOSE RANDOM 92.0 mg/dL (70-99); POTASSIUM,K 5.0 mmol/L (3.5-5.1); PROTEIN TOTAL,TP 6.8 g/dL (6.4-8.2); SODIUM,NA 142.0 mmol/L (136-145)
[2024-08-23 12:56] VITALS: BP 109/77; PULSE 92
== END 2024-08-23 13:05 | disposition home or self-care (01) ==
LOC: DL.ED 10:16
DX: R00.1 Bradycardia, unspecified (principal); I10 Essential (primary) hypertension; E03.9 Hypothyroidism, unspecified; Z79.899 Other long term (current) drug therapy; Z88.8 Allergy status to other drugs, medicaments and biological substances; Z91.013 Allergy to seafood; Z88.1 Allergy status to other antibiotic agents; Z79.890 Hormone replacement therapy; Z90.49 Acquired absence of other specified parts of digestive tract; Z90.710 Acquired absence of both cervix and uterus
CPT/HCPCS: 36415; 80053; 83735; 84484; 85025; 93005; 99284

== ENCOUNTER 2024-09-22 08:30 | Emergency (ER) | payer MEDICARE, OTHER ==
[2024-09-22] MEDS: methylPREDNISolone Sodium Succinate 125 MG/2 ML SDV IV ONE (09:23)
[2024-09-22] MEDS: Budesonide 0.5 MG/2 ML Neb Susp NEB ONE (09:24)
[2024-09-22 09:27] LABS: BASOPHILS PERCENT AUTO 0.0 % (0.0-1.0); EOSINOPHILS PERCENT AUTO 1.8 % (1.0-3.0); LYMPHOCYTES PERCENT AUTO 37.2 % (20.5-50.1); MONOCYTES PERCENT AUTO 15.4 % (2-8); NEUTROPHILS PERCENT AUTO 45.6 % (42.2-75.2); PLATELET COUNT,PLT 161 10^3/uL (150-450); RED BLOOD CELL COUNT 4.30 10^6/uL (4.2-5.4); WHITE BLOOD CELL COUNT,WBC 3.3 10^3/uL (5.0-10.0)
[2024-09-22 09:46] LABS: B-TYPE NATRIURETIC PEPTIDE,BNP 1990.0 pg/ml (0-100)
[2024-09-22 09:48] LABS: A/G RATIO 0.88; ALANINE AMINOTRANSFERASE,ALT 13.0 U/L (14-59); ASPARTATE AMNIOTRANSFERASE,AST 22.0 U/L (15-37); BILIRUBIN TOTAL 0.5 mg/dL (0.2-1.0); BLOOD UREA NITROGEN,BUN 30.0 mg/dL (7-18); CARBON DIOXIDE,CO2 29.0 mmol/L (21-32); CHLORIDE,CL 104.0 mmol/L (98-107); CREATININE 0.47 mg/dL (0.55-1.02); EST CRCL DRUG DOSING (CG) 54.98 mL/min; ESTIMATED GFR 92.0 mL/min (>=60); GLUCOSE RANDOM 114.0 mg/dL (70-99); POTASSIUM,K 4.8 mmol/L (3.5-5.1); PROTEIN TOTAL,TP 6.4 g/dL (6.4-8.2); SODIUM,NA 138.0 mmol/L (136-145)
[2024-09-22] MEDS: Furosemide 40 MG/4 ML VIAL IVPUSH ONE (10:15)
[2024-09-22 11:51] VITALS: BP 117/80; PULSE 100
== END 2024-09-22 11:39 | disposition home or self-care (01) ==
LOC: DL.ED 08:30
DX: I11.0 Hypertensive heart disease with heart failure (principal); I50.9 Heart failure, unspecified; E03.9 Hypothyroidism, unspecified; Z91.018 Allergy to other foods; Z91.013 Allergy to seafood; Z88.8 Allergy status to other drugs, medicaments and biological substances; Z79.51 Long term (current) use of inhaled steroids; Z79.890 Hormone replacement therapy; Z79.899 Other long term (current) drug therapy
CPT/HCPCS: 36415; 71046; 80053; 83880; 84484; 85025; 87428; 93005; 94640; 96374; 96375; 99285; A9270; J1938; J2919

== ENCOUNTER 2024-12-02 18:38 | Inpatient (IN) | payer MEDICARE, OTHER ==
[2024-12-02 19:41] LABS: PLATELET COUNT,PLT 229 10^3/uL (150-450); RED BLOOD CELL COUNT 3.95 10^6/uL (4.2-5.4); WHITE BLOOD CELL COUNT,WBC 14.8 10^3/uL (5.0-10.0)
[2024-12-02 19:49] LABS: ALANINE AMINOTRANSFERASE,ALT 16.0 U/L (14-59); ASPARTATE AMNIOTRANSFERASE,AST 20.0 U/L (15-37); BILIRUBIN TOTAL 0.7 mg/dL (0.2-1.0); BLOOD UREA NITROGEN,BUN 64.0 mg/dL (7-18); CARBON DIOXIDE,CO2 27.0 mmol/L (21-32); CHLORIDE,CL 106.0 mmol/L (98-107); CREATININE 0.93 mg/dL (0.55-1.02); EST CRCL DRUG DOSING (CG) 27.25 mL/min; GLUCOSE RANDOM 176.0 mg/dL (70-99); POTASSIUM,K 5.2 mmol/L (3.5-5.1); PROTEIN TOTAL,TP 7.3 g/dL (6.4-8.2); SODIUM,NA 143.0 mmol/L (136-145)
[2024-12-02 19:54] LABS: A/G RATIO 0.62; ESTIMATED GFR 59.0 mL/min (>=60)
[2024-12-02 19:56] LABS: BASOPHILS PERCENT AUTO 0.0 % (0.0-1.0); EOSINOPHILS PERCENT AUTO 0.0 % (1.0-3.0); LYMPHOCYTES PERCENT AUTO 13.7 % (20.5-50.1); MONOCYTES PERCENT AUTO 9.9 % (2-8); NEUTROPHILS PERCENT AUTO 76.4 % (42.2-75.2)
[2024-12-02] MEDS: Levofloxacin/Dextrose 5%-Water 750 MG in Premix Bag 1 BAG IV ONE (20:07)
[2024-12-02 20:12] LABS: LYMPHOCYTES PERCENT MAN 10 % (20-50); MONOCYTES PERCENT MAN 5 % (2-8); SEG NEUTROPHILS PERCENT MAN 85 % (42-75)
[2024-12-02 20:15] LABS: B-TYPE NATRIURETIC PEPTIDE,BNP 4220.0 pg/ml (0-100)
[2024-12-02 22:38] VITALS: BP 95/49; PULSE 87
[2024-12-02] MEDS: Heparin Sodium 5,000 Units/ML Vial IVPUSH ONE (23:03)
[2024-12-02] MEDS: Heparin Sodium/0.45% NaCl 25,000 UNITS/500 ML BAG IV SCH (23:04)
[2024-12-02 23:09] LABS: O2 DELIVERY DEVICE NASAL CANNULA
[2024-12-02 23:11] LABS: BASE EXCESS ARTERIAL -3 mmol/L ((-2)-(+3)); BICARBONATE,ARTERIAL 24.8 mmol/L (22-26); O2 SATURATION ARTERIAL 94 % (95-100); PCO2 ARTERIAL 59 mmHg (35-45); PH,ARTERIAL 7.25 (7.35-7.45); PO2 ARTERIAL 88 mmHg (70-100)
[2024-12-02 23:12] LABS: O2 FLOW RATE 2
== END 2024-12-03 00:02 | DRG 280 ==
LOC: DL.ED 18:38 → DL.MS 20:55
PROVIDERS: ADMIT Internal Medicine; ATTEND Internal Medicine
DX: A41.9 Sepsis, unspecified organism (principal); I21.4 Non-ST elevation (NSTEMI) myocardial infarction; I26.99 Other pulmonary embolism without acute cor pulmonale; I50.9 Heart failure, unspecified; I50.23 Acute on chronic systolic (congestive) heart failure; J18.9 Pneumonia, unspecified organism; J96.01 Acute respiratory failure with hypoxia; D84.9 Immunodeficiency, unspecified; J44.0 Chronic obstructive pulmonary disease with (acute) lower respiratory infection; Z66 Do not resuscitate; H26.9 Unspecified cataract; E03.9 Hypothyroidism, unspecified; H54.7 Unspecified visual loss; I11.0 Hypertensive heart disease with heart failure; Z87.440 Personal history of urinary (tract) infections; Z90.49 Acquired absence of other specified parts of digestive tract; Z90.89 Acquired absence of other organs; Z90.710 Acquired absence of both cervix and uterus; Z79.1 Long term (current) use of non-steroidal anti-inflammatories (NSAID); Z79.899 Other long term (current) drug therapy; Z79.51 Long term (current) use of inhaled steroids; Z88.8 Allergy status to other drugs, medicaments and biological substances; Z88.1 Allergy status to other antibiotic agents; Z91.013 Allergy to seafood; Z91.018 Allergy to other foods; Z98.890 Other specified postprocedural states; Z99.3 Dependence on wheelchair
CPT/HCPCS: 36415; 36600; 71045; 80053; 82803; 83605; 83880; 84145; 84484; 85025; 85730; 87040; 93005; 93010; 96365; 99223; 99285; 99285-25; A9270-GY; J1644; J1956; J7040